=== PATIENT | female | born 1950 | race African-American/Black ===

== ENCOUNTER → 2016-08-14 | Outpatient (CLI) | payer MEDICARE ==
[~2016-08-14] MED LIST: BARIUM SULFATE(VOLUMEN) 450 ML ORAL.SUSP ONE
== END | disposition home or self-care (01) ==
LOC: RAD 08:52
PROVIDERS: ATTEND Radiology Radiation Oncology
DX: C05.1 Malignant neoplasm of soft palate (principal); K44.9 Diaphragmatic hernia without obstruction or gangrene; K21.9 Gastro-esophageal reflux disease without esophagitis
CPT/HCPCS: 74220